=== PATIENT | female | born 1935 | race Caucasian/White ===

== ENCOUNTER → 2016-05-17 | Outpatient (CLI) | payer MEDICARE, OTHER ==
[~2016-05-17] MED LIST: ACET-1651 PO; CARV12.525 PO; CHOL200014 PO; FAMO40TA7 PO; HYDR-3989 PO; IBUP-1724 PO; LISI10TA7 PO; OMEG1CAP31 PO; OMEP20CA10 PO; PRAV40TA3 PO; [UNRECOGNIZED DRUG - CODE] PO
== END ==
LOC: WC.BC 09:57
PROVIDERS: ATTEND Physician Assistant
DX: C50.912 Malignant neoplasm of unspecified site of left female breast (principal); N64.59 Other signs and symptoms in breast; N64.89 Other specified disorders of breast; Z98.890 Other specified postprocedural states
CPT/HCPCS: G0204; G0279

== ENCOUNTER 2017-08-28 22:42 | Inpatient (IN) ==
[2017-08-28] MEDS ORDERED: SALINE FLUSH 10ml SYRINGE IVF PRN (22:47)
[2017-08-28] MEDS ORDERED: NS 1,000 ML IV ONE (22:50)
[2017-08-28] MEDS ORDERED: DiltiaZEM 25 MG/5 ML INJECTION IVP ONE (22:50)
--- NOTE | 2017-08-28 22:52 | Emergency Department Report ---
Cardiac General HPI - General Stated Complaint: A-Fib,High BP Time Seen by Provider: 08/28/17 22:46 Source: patient, EMS Mode of arrival: EMS Limitations: no limitations - History of Present Illness HPI narrative: Several hours ago the patient began experiencing palpitations with a rapid heartbeat, and mild chest pressure. Patient has known atrial fibrillation, takes carvedilol and flecainide, and has always had good control. 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 No new medications or changes, no fevers or congestion, no urinary symptoms or abdominal symptoms. Patient was found to be hypertensive, given nitroglycerin 2 in route to help with blood pressure, but was not given any medications to help control atrial fibrillation with RVR. EKG in route showed no other signs of ectopy or ischemia. - Related Data Home Medications Medication Instructions Recorded Confirmed [place]-3 Fatty Acids/Fish Oil [Eql 1 cap PO DAILY #0 07/08/14 08/29/17 Fish Oil 1,200 mg Softgel] Arimidex (anastrozole) 1 mg tablet 1 mg PO WS tab 07/07/16 08/29/17 peg 400-propylene glycol 0.4 %-0.3 1 drop EACH EYE BID PRN 07/07/16 08/29/17 % eye drops Aspirin 81 mg PO BID 07/18/16 08/29/17 Tylenol Arthritis 650 mg 650 mg PO Q8H PRN tab 08/11/16 08/29/17 tablet,extended release meclizine 25 mg tablet 25 mg PO QID PRN tab 01/26/17 08/29/17 Flonase (Fluticasone) 50 mcg nasal 2 spray INTRANASAL DAILY PRN 06/21/17 spray cholecalciferol (vitamin D3) 2,000 4,000 unit PO DAILY cap 06/21/17 08/29/17 unit capsule propylene glycol 0.6 % eye drops % OP 06/21/17 07/30/17 warfarin 5 mg tablet See Label Instructions PO .COMPLEX 08/14/17 08/29/17 tab Previous Rx's Medication Instructions Recorded flecainide 50 mg tablet 50 mg PO BID #180 tab 01/30/17 Coreg (carvedilol) 12.5 mg tablet 12.5 mg PO BID #180 tab 07/27/17 Pravachol (pravastatin) 20 mg 10 mg PO HS #45 tab 07/27/17 tablet Prilosec (Omeprazole) 20 mg 20 mg PO BID #180 cap 07/27/17 capsule,delayed release Allergies Allergy/AdvReac Type Severity Reaction Status Date / Time metformin AdvReac Intermediate Nausea, Verified 08/28/17 23:57 body aches, fatigue, palpitations Review of Systems All systems: reviewed and negative except as stated PFSH Patient Stated Medical History Cataracts Yes: REMOVED Cardiac Arrhythmia Yes: AFIB Hypertension Yes Diabetes Mellitus Type 2 Yes: PREDIABETES Clotting Problems Yes: TAKES WARFARIN Depression Yes Fibroids Yes Post Menopausal Yes Clinic Medical History (Last Reviewed 07/23/17 @ 12:55 by ZAK Alfaro) GERD (gastroesophageal reflux disease) (Chronic Medical) Bilateral cataracts (Chronic Medical) Type 2 diabetes mellitus (Chronic Medical) 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 Diagnosed in June 2014 Obesity (Chronic Medical) Surgical History: Tonsillectomy and adenoidectomy. as a child at 14. Cholecystectomy 1970. appendectomy. DEANA/BSO due to fibroids 1981. R TKR-2006. L TKR-09/2008. total hysterectomy age 46. cataracts both eyes. Left breast lumpectomy age 79 Family History: Family History (Last Reviewed 07/23/17 @ 12:55 by ZAK Alfaro) Father , Age 89 Bladder cancer Skin cancer SCC and BCC Type 2 diabetes mellitus Benign essential hypertension Mother Benign essential hypertension Type 2 diabetes mellitus Osteoarthritis Cancer of lung Sister Benign essential hypertension Brother Osteoarthritis Hx of TKR Skin cancer Malignant melanoma Benign essential hypertension Sister Osteoarthritis Benign essential hypertension Skin cancer Melanoma Cancer of breast Paternal Grandfather Stroke Maternal Grandmother Type 2 diabetes mellitus Paternal Uncle CAD (coronary artery disease) Paternal Uncle Type 2 diabetes mellitus Unknown CAD (coronary artery disease) - Social History Smoking status: Never smoker Substance use type: does not use Alcohol intake: never Alcohol intake frequency: does not drink Housing: house Household members: none Current occupational status: retired Course Vital Signs Temperature 97.7 F 08/28/17 22:42 Pulse Rate 138 H 08/28/17 22:42 Respiratory Rate 20 08/28/17 22:42 Blood Pressure 182/109 H 08/28/17 22:42 Pulse Oximetry 92 08/28/17 22:42 Temperature 97.7 F 08/28/17 22:42 Pulse Rate 91 08/29/17 00:00 Respiratory Rate 19 08/29/17 00:00 Blood Pressure 128/62 08/29/17 00:00 Pulse Oximetry 94 08/29/17 00:00 Cardiac General - MDM Narrative Medical decision making narrative: CBC, CMP shows mild dehydration only, troponin is normal. He showed atrial fibrillation with improved rate after Cardizem, but persistent A. fib. Patient' s rate has been maintained 85-98, and she continues to have mild palpitations which are unusual for her. Patient will be admitted to CCU as an outpatient with Jennifer drip to Dr. Gee 's service. - Lab Data Result diagrams: 08/28/17 23:37 08/28/17 23:37 Lab Results 08/28/17 08/28/17 Range/Units 23:37 23:37 WBC 7.4 (4.5-11.0) T/MM3 RBC 4.95 (4.00-5.20) M/MM3 Hgb 13.9 (12-16) GM/DL Hct 42.9 (36-46) % MCV 86.7 (80-100) UM3 MCH 28.1 (26-34) UUG MCHC 32.4 (31-37) GM/DL RDW Std Deviation 44.8 (36.9-50.2) FL Plt Count 190 (130-400) T/MM3 MPV 11.4 (9.4-12.4) UM3 Immature Gran % (Auto) 0.3 (0.0-0.5) % Neut % (Auto) 53.3 (33-66) % Lymph % (Auto) 34.5 (23-45) % [place] % (Auto) 8.4 (0-9.0) % Eos % (Auto) 3.1 (0-4) % Baso % (Auto) 0.4 (0-2) % Neut # (Auto) 3.9 (1.8-7.7) T/MM3 Lymph # (Auto) 2.5 (1-4.8) T/MM3 [place] # (Auto) 0.6 (0-0.8) T/MM3 Eos # (Auto) 0.2 (0-0.5) T/MM3 Baso # (Auto) 0.0 (0-0.2) T/MM3 Abs Immat Gran (auto) 0.02 (0.00-0.03) T/MM3 Turbidity < 20 (0-20) Sodium 147 H (136-146) MEQ/L Potassium 3.8 (3.6-5) MEQ/L Chloride 109 H (98-107) MEQ/L Carbon Dioxide 27 (22-30) MEQ/L Anion Gap 11 (5-15) meq/L BUN 18.0 H (7-17) MG/DL Creatinine 0.7 (0.7-1.2) mg/dL GFR Calculation 81 BUN/Creatinine Ratio 26 (6-26) RATIO Glucose 134 H (65-110) MG/DL Calculated Osmolality 286 H (261-280) MOSM/KG Calcium 9.5 (8.4-10.2) MG/DL Total Bilirubin 0.90 (0.20-1.30) MG/DL Conjugated Bilirubin 0.00 (0.00-0.30) mg/dL Unconjugated Bilirubin 0.80 (0.00-1.1) mg/dL Icterus Index < 2 (0-7) AST 21 (14-36) U/L ALT 14 (1-35) U/L Alkaline Phosphatase 77 (38-126) U/L Troponin I < 0.012 (0-0.12) ng/ml Total Protein 7.3 (6.3-8.2) g/dL Albumin 4.4 (3.5-5.0) g/dL Globulin 2.9 (2.4-3.6) G/DL Albumin/Globulin Ratio 1.5 (1.1-2.2) RATIO Specimen Hemolysis < 15 (0-25) Critical Care Time Critical Care Time: Yes Total Critical Care Time: 35 Attestation: Patient presented with palpitations, uncontrolled atrial fibrillation, and abnormal vital signs. Patient required aggressive diagnostic and interventions to control her dysrhythmia. Disposition Clinical Impression: Atrial fibrillation with RVR Disposition: 02 To [facility] Condition: Improved Prescriptions: No Action Ferris-3 Fatty Acids/Fish Oil [Eql Fish Oil 1,200 mg Softgel] 1 cap PO DAILY # 0 Aspirin 81 mg PO BID Tylenol Arthritis 650 mg tablet,extended release 650 mg PO Q8H PRN tab PRN Reason: Pain flecainide 50 mg tablet 50 mg PO BID #180 tab cholecalciferol (vitamin D3) 2,000 unit capsule 4,000 unit PO DAILY cap Flonase (Fluticasone) 50 mcg nasal spray 2 spray INTRANASAL DAILY PRN PRN Reason: seasonal allergies propylene glycol 0.6 % eye drops % OP Coreg (carvedilol) 12.5 mg tablet 12.5 mg PO BID #180 tab warfarin 5 mg tablet See Label Instructions PO .COMPLEX tab Arimidex (anastrozole) 1 mg tablet 1 mg PO WS tab peg 400-propylene glycol 0.4 %-0.3 % eye drops 1 drop EACH EYE BID PRN PRN Reason: Prn Orders meclizine 25 mg tablet 25 mg PO QID PRN tab PRN Reason: as needed for dizziness Pravachol (pravastatin) 20 mg tablet 10 mg PO HS #45 tab Prilosec (Omeprazole) 20 mg capsule,delayed release 20 mg PO BID #180 cap Referrals: Inna Cabral PA [Primary Care Provider] - - Seen By: physician
[2017-08-29] MEDS ORDERED: DiltiaZEM Drip 125 MG in NS 125 ML IV SCH (00:30)
[2017-08-29] MEDS ORDERED: NS FLUSH BAG 500ml IV ONE (01:30)
[2017-08-29] MEDS ORDERED: ONDANSETRON 4 MG/2 ML INJECTION IVP PRN (01:32)
[2017-08-29] MEDS ORDERED: ACETAMINOPHEN 325 MG TABLET PO PRN (01:33)
[2017-08-29] MEDS ORDERED: NITROGLYCERIN 0.4 MG SUBLINGUAL TABLET SL PRN (01:34)
[2017-08-29 01:39] VITALS: BMI 38.1
--- NOTE | 2017-08-29 10:19 | Cardiology History & Physical ---
History of Present Illness Chief complaint: palpitations HPI: Katie is a 82 year old who is known to Dr. Cisneros's practice with a history of PAF and HTN who began experiencing palpitations with a rapid heartbeat, and mild chest pressure. She called EMS and was found to be hypertensive, given nitroglycerin 2 in route to help with blood pressure, but was not given any medications to help control atrial fibrillation with RVR. EKG in route showed no other signs of ectopy or ischemia. EKG in ED post Cardizem shows AFib with some ST depression, HR 95. Patient was admitted to observation in the CCU in the care of Dr. Gee. She is examined in her room in CCU. She currently is rate controlled AFib, HR 80s. She states she can still feel fluttering in her chest but not as severe as last evening. She denies chest pain or pressure now. She is in no distress on room air. Review of Systems - Constitutional Constitutional: Absent: chills, fatigue, fever(s) - EENMT Eyes: Absent: change in vision Balance: Absent: vertigo Mouth/Throat: Absent: sore throat - Cardiovascular Cardiovascular: Present: chest pain (pressure), palpitations. Absent: syncope, dyspnea on exertion, orthopnea, heart murmur Rhythm: Present: abnormal rhythm Vascular: Absent: pedal edema - Respiratory Respiratory: Absent: cough, dyspnea, dyspnea on exertion - Gastrointestinal Gastrointestinal: Absent: abdominal pain, diarrhea, nausea, vomiting - Genitourinary Genitourinary: Absent: dysuria - Integumentary/Breasts Integumentary: Absent: rash - Neurological Neurological: Absent: dizziness - Endocrine Endocrine: Present: palpitations PFSH Patient Stated Medical History Cataracts Yes: REMOVED Cardiac Arrhythmia Yes: AFIB Hypertension Yes Diabetes Mellitus Type 2 Yes: PREDIABETES Clotting Problems Yes: TAKES WARFARIN Depression Yes Fibroids Yes Post Menopausal Yes Clinic Medical History (Last Reviewed 07/23/17 @ 12:55 by ZAK Alfaro) GERD (gastroesophageal reflux disease) (Chronic Medical) Bilateral cataracts (Chronic Medical) Type 2 diabetes mellitus (Chronic Medical) 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 Diagnosed in June 2014 Obesity (Chronic Medical) Surgical History: Tonsillectomy and adenoidectomy. as a child at 14. Cholecystectomy 1970. appendectomy. DEANA/BSO due to fibroids 1981. R TKR-2006. L TKR-09/2008. total hysterectomy age 46. cataracts both eyes. Left breast lumpectomy age 79 Family History: Family History (Last Reviewed 07/23/17 @ 12:55 by ZAK Alfaro) Father , Age 89 Bladder cancer Skin cancer SCC and BCC Type 2 diabetes mellitus Benign essential hypertension Mother Benign essential hypertension Type 2 diabetes mellitus Osteoarthritis Cancer of lung Sister Benign essential hypertension Brother Osteoarthritis Hx of TKR Skin cancer Malignant melanoma Benign essential hypertension Sister Osteoarthritis Benign essential hypertension Skin cancer Melanoma Cancer of breast Paternal Grandfather Stroke Maternal Grandmother Type 2 diabetes mellitus Paternal Uncle CAD (coronary artery disease) Paternal Uncle Type 2 diabetes mellitus Unknown CAD (coronary artery disease) - Social History Smoking status: Never smoker Substance use type: does not use Alcohol intake: never Alcohol intake frequency: does not drink Housing: house Household members: none Current occupational status: retired Current residence: Apartment/Private Home Medications Home Medications Medication Instructions Recorded Confirmed Type Arimidex (anastrozole) 1 mg tablet 1 mg PO WS tab 07/07/16 08/29/17 History peg 400-propylene glycol 0.4 %-0.3 1 drop EACH EYE BID PRN 07/07/16 08/29/17 History % eye drops Aspirin 81 mg PO BID 07/18/16 08/29/17 History Tylenol Arthritis 650 mg 650 mg PO Q8H PRN tab 08/11/16 08/29/17 History tablet,extended release meclizine 25 mg tablet 25 mg PO QID PRN tab 01/26/17 08/29/17 History flecainide 50 mg tablet 50 mg PO BID #180 tab 01/30/17 08/29/17 Rx Flonase (Fluticasone) 50 mcg nasal 2 spray INTRANASAL DAILY PRN 06/21/17 History spray cholecalciferol (vitamin D3) 2,000 4,000 unit PO DAILY cap 06/21/17 08/29/17 History unit capsule propylene glycol 0.6 % eye drops % OP 06/21/17 07/30/17 History Coreg (carvedilol) 12.5 mg tablet 12.5 mg PO BID #180 tab 07/27/17 08/29/17 Rx Pravachol (pravastatin) 20 mg 10 mg PO HS #45 tab 07/27/17 08/29/17 Rx tablet warfarin 5 mg tablet See Label Instructions PO .COMPLEX 08/14/17 08/29/17 History tab Famotidine [Pepcid] 40 mg PO DAILY 08/29/17 08/29/17 History Folic Acid [Folate] 1 tab PO DAILY 08/29/17 08/29/17 History [place]-3 Fatty Acids 1,200 mg PO DAILY 08/29/17 08/29/17 History Omeprazole [Prilosec] 1 cap PO ACBID 08/29/17 08/29/17 History Sodium Chloride [Saline Nasal 30 ml NS PRN 08/29/17 08/29/17 History [place]] Allergies Allergy/AdvReac Type Severity Reaction Status Date / Time metformin AdvReac Intermediate Nausea, Verified 08/28/17 23:57 body aches, fatigue, palpitations Exam Vital signs: Temperature 97.5 F 08/29/17 07:03 Pulse Rate 76 08/29/17 08:00 Respiratory Rate 23 08/29/17 07:03 Blood Pressure 151/86 H 08/29/17 07:03 Pulse Oximetry 97 08/29/17 07:03 - Constitutional no acute distress, well nourished, cooperative - Routine HEENT Exam Head: Present: normocephalic ENT: Present: mucous membranes moist - Routine Neck Exam Absent: JVD, carotid bruit - Routine Chest/Breast/Axilla Exam Chest wall: Absent: tenderness - Routine Respiratory Exam Present: CTA bilaterally. Absent: rales, wheezes - Routine Cardiovascular Exam Present: no murmur - Routine Abdominal Exam Present: soft, non tender - Routine Extremities Exam Present: no edema - Routine Skin Exam Present: intact, dry, warm - Routine Neurological Exam Present: alert, oriented X3 - Routine Psychiatric Exam Present: normal affect, normal thought process Results 08/29/17 04:47 08/29/17 04:45 Cardiac Enzymes 08/28/17 08/29/17 Range/Units 23:37 04:45 AST 21 20 (14-36) U/L Troponin I < 0.012 (0-0.12) ng/ml CBC 08/28/17 08/29/17 Range/Units 23:37 04:47 WBC 7.4 8.0 (4.5-11.0) T/MM3 RBC 4.95 4.99 (4.00-5.20) M/MM3 Hgb 13.9 13.9 (12-16) GM/DL Hct 42.9 43.0 (36-46) % Plt Count 190 195 (130-400) T/MM3 Neut # (Auto) 3.9 (1.8-7.7) T/MM3 Lymph # (Auto) 2.5 (1-4.8) T/MM3 [place] # (Auto) 0.6 (0-0.8) T/MM3 Eos # (Auto) 0.2 (0-0.5) T/MM3 Baso # (Auto) 0.0 (0-0.2) T/MM3 Comprehensive Metabolic Panel 08/28/17 08/29/17 Range/Units 23:37 04:45 Sodium 147 H 144 (136-146) MEQ/L Potassium 3.8 4.0 (3.6-5) MEQ/L Chloride 109 H 110 H (98-107) MEQ/L Carbon Dioxide 27 25 (22-30) MEQ/L BUN 18.0 H 16.0 (7-17) MG/DL Creatinine 0.7 0.5 L D (0.7-1.2) mg/dL Glucose 134 H 117 H (65-110) MG/DL Calcium 9.5 9.2 (8.4-10.2) MG/DL Unconjugated Bilirubin 0.80 (0.00-1.1) mg/dL AST 21 20 (14-36) U/L ALT 14 13 (1-35) U/L Alkaline Phosphatase 77 68 (38-126) U/L Total Protein 7.3 7.0 (6.3-8.2) g/dL Albumin 4.4 4.0 (3.5-5.0) g/dL Intake and Output 08/28/17 08/29/17 08/29/17 22:59 06:59 14:59 Intake Total 1000 / 1000 Output Total 500 / 500 150 / 150 Balance 500 / 500 -150 / -150 Intake: IV 1000 / 1000 Ns 1,000 ml @ 999.9 mls/hr IV . 1000 / 1000 Q1H ONE Rx#:[id number] Output: Urine 500 / 500 150 / 150 Other: # Voids 1 Weight 202 lb 13.204 oz 198 lb 10.184 oz 198 lb 10.184 oz Patient Weight 08/30/17 06:59 Weight 198 lb 10.184 oz - Imaging and Cardiology Echo: pending Imaging & Cardiology Narrative: Date of Exam: 08/29/17 Ordering Provider: Elaine Troy APRN Type of Exam(s): XR chest 1V Reason for Exam(s): afib rvr Indication: afib rvr PROCEDURE: XR chest 1V: Encounter: Initial Comparison: April 21, 2017 Findings: The lungs are stable in appearance without new focal airspace consolidation. There is no pleural effusion or pneumothorax. The heart size, pulmonary vascularity and mediastinal contours are unchanged. IMPRESSION: Stable appearance of the chest without acute cardiopulmonary disease. 08/29/17 13:36 08/30/17 11:01 Date of Exam: 08/29/17 Type of Exam(s): US echo doppler complete DATE OF PROCEDURE 08/29/2017 PROCEDURE PERFORMED 2D echocardiography with M-mode assessment and full color spectral Doppler assessment. FINDINGS 1. LEFT VENTRICLE. Left ventricle appears normal in size. Normal left ventricular wall thickness noted. Left ventricular systolic function is normal. Estimated ejection fraction is 60-65% and the study is not technically sufficient to allow accurate assessment of diastolic function. 2. RIGHT VENTRICLE. Right ventricle appears normal in size. Normal RV wall thickness noted. Normal right ventricular systolic function noted. 3. LEFT ATRIUM. Left atrium is enlarged. 4. RIGHT ATRIUM. Right atrium is mildly enlarged. 5. INTERATRIAL SEPTUM. Interatrial septum appears aneurysmal. There is no obvious shunting noted with color flow Doppler assessment. 6. MITRAL VALVE. Mitral valve appears structurally normal. There is only trivial mitral regurgitation noted. 7. AORTIC VALVE. Aortic valve appears tricuspid with normal leaflet thickness. No significant aortic stenosis is noted. No aortic regurgitation noted. 8. TRICUSPID VALVE. Tricuspid valve poorly visualized on today's study. Trivial tricuspid regurgitation noted. 9. PULMONIC VALVE. Pulmonic valve poorly visualized on today's study. Trivial pulmonic regurgitation noted. 10. INFERIOR VENA CAVA. Inferior vena cava is normal in size and normal respirophasic variation noted. CONCLUSION 1. Normal left ventricular systolic function, estimated left ventricular ejection fraction 60-65%. 2. Normal right ventricular systolic function. 3. Trivial mitral regurgitation noted. 4. Normal inferior vena cava with normal respirophasic variation. EKG interpretations - EKG EKG shows: atrial fibrillation Hospital Course This is a general summary of the patient's hospital course. For more details refer to the complete medical record. Time spent with patient: 25 - 35 minutes Resuscitation Status: Full Code Assessment and Plan - Assessment and Plan (1) Atrial fibrillation with RVR Current visit: Yes Status: Acute Onset last evening, felt palpitations and chest pressure - on chronic anticoagulation on Warfarin, check INR - NPO for DCCV later today - Give 100mg Flecainide now - TSH WNL, Mag pending - EKG if rhythm change (2) Benign hypertension Current visit: No Status: Chronic - Assessment and Plan A Fib RVR: Onset last evening, felt palpitations and chest pressure - on chronic anticoagulation on Warfarin, check INR - NPO for DCCV later today - Give 100mg Flecainide now - TSH WNL, Mag pending - EKG if rhythm change INR 2.46 Sucessful DCCV to SR. Flecainide 100mg BID for AAT - monitor cardiac telemetry - EKG in am
[2017-08-29] MEDS ORDERED: FLUTICASONE NASAL SPRAY 50mcg EA NOSTRIL PRN (10:22)
[2017-08-29] MEDS ORDERED: SYSTANE EYE DROPS 0.7ml EACH EYE PRN (10:22)
[2017-08-29] MEDS ORDERED: MECLIZINE 25 MG TABLET PO PRN (10:22)
[2017-08-29] MEDS ORDERED: SALINE 0.65% NASAL SPRAY 44 ML BOTTLE EA NOSTRIL PRN (10:30)
[2017-08-29] MEDS ORDERED: FLECAINIDE 100 MG TABLET PO ONE (11:04)
[2017-08-29] MEDS: OMEPRAZOLE 20 MG CAPSULE PO SCH ×2 (11:17→17:36)
[2017-08-29] MEDS: FOLIC ACID 1 MG TABLET PO SCH (11:18)
--- NOTE | 2017-08-29 11:33 | XRay Report ---
Indication: afib rvr PROCEDURE: XR chest 1V: Encounter: Initial Comparison: April 21, 2017 Findings: The lungs are stable in appearance without new focal airspace consolidation. There is no pleural effusion or pneumothorax. The heart size, pulmonary vascularity and mediastinal contours are unchanged. IMPRESSION: Stable appearance of the chest without acute cardiopulmonary disease. .
[2017-08-29] MEDS ORDERED: NS FLUSH BAG 500ml IV PRN (11:51)
[2017-08-29] MEDS: FAMOTIDINE 40 MG TABLET PO SCH (11:53)
[2017-08-29] MEDS ORDERED: WARFARIN 7.5 MG TABLET PO SCH (12:00)
--- NOTE | 2017-08-29 14:39 | DC Cardioversion ---
DATE OF PROCEDURE 08/29/2017 PROCEDURE PERFORMED Direct current cardioversion PROCEDURE NOTE Risks and benefits of procedure were explained to the patient and then informed consent was obtained. Procedure was performed in the CCU at bedside. Patient has been on oral anticoagulation for buttermaker. Intravenous Midazolam and Fentanyl was given for conscious sedation during the procedure. Patient received a total of 3 mg of Midazolam and 50 mcg of Fentanyl. After sedation, a single synchronized shock of 200 joules was delivered and successfully converted from atrial fibrillation to normal sinus rhythm sinus bradycardia. Patient was then continuously monitored in CCU. CONCLUSION Successful cardioversion from atrial fibrillation to normal sinus rhythm sinus bradycardia. RECOMMENDATION Will increase the dose of Flecainide to 100 mg b.i.d. and continue on oral anticoagulation indefinitely. MTDD
[2017-08-29] MEDS ORDERED: MIDAZOLAM 2mg/2ml INJECTION IVP ONE (15:44)
[2017-08-29] MEDS ORDERED: SALINE FLUSH 10ml SYRINGE IV ONE (15:44)
[2017-08-29] MEDS ORDERED: FentaNYL 100 MCG/2 ML INJECTION IVP ONE (15:44)
--- NOTE | 2017-08-29 15:50 | Echocardiogram ---
DATE OF PROCEDURE 08/29/2017 PROCEDURE PERFORMED 2D echocardiography with M-mode assessment and full color spectral Doppler assessment. FINDINGS 1. LEFT VENTRICLE. Left ventricle appears normal in size. Normal left ventricular wall thickness noted. Left ventricular systolic function is normal. Estimated ejection fraction is 60-65% and the study is not technically sufficient to allow accurate assessment of diastolic function. 2. RIGHT VENTRICLE. Right ventricle appears normal in size. Normal RV wall thickness noted. Normal right ventricular systolic function noted. 3. LEFT ATRIUM. Left atrium is enlarged. 4. RIGHT ATRIUM. Right atrium is mildly enlarged. 5. INTERATRIAL SEPTUM. Interatrial septum appears aneurysmal. There is no obvious shunting noted with color flow Doppler assessment. 6. MITRAL VALVE. Mitral valve appears structurally normal. There is only trivial mitral regurgitation noted. 7. AORTIC VALVE. Aortic valve appears tricuspid with normal leaflet thickness. No significant aortic stenosis is noted. No aortic regurgitation noted. 8. TRICUSPID VALVE. Tricuspid valve poorly visualized on today's study. Trivial tricuspid regurgitation noted. 9. PULMONIC VALVE. Pulmonic valve poorly visualized on today's study. Trivial pulmonic regurgitation noted. 10. INFERIOR VENA CAVA. Inferior vena cava is normal in size and normal respirophasic variation noted. CONCLUSION 1. Normal left ventricular systolic function, estimated left ventricular ejection fraction 60-65%. 2. Normal right ventricular systolic function. 3. Trivial mitral regurgitation noted. 4. Normal inferior vena cava with normal respirophasic variation. [facility]
[2017-08-29] MEDS ORDERED: ANASTROZOLE 1 MG TABLET PO SCH (17:30)
[2017-08-29] MEDS ORDERED: PRAVASTATIN 10 MG TABLET PO SCH (21:00)
[2017-08-29] MEDS: ASPIRIN 81 MG CHEWABLE TABLET PO SCH (21:02)
[2017-08-29] MEDS: CARVEDILOL 12.5 MG TABLET PO SCH (21:03)
[2017-08-29] MEDS: FLECAINIDE 100 MG TABLET PO SCH (21:03)
[2017-08-30] MEDS: OMEPRAZOLE 20 MG CAPSULE PO SCH (06:15)
[2017-08-30 07:29] VITALS: TEMP 97
[2017-08-30] MEDS: CARVEDILOL 12.5 MG TABLET PO SCH (09:30)
[2017-08-30] MEDS: FLECAINIDE 100 MG TABLET PO SCH (09:31)
[2017-08-30] MEDS: ASPIRIN 81 MG CHEWABLE TABLET PO SCH (09:31)
[2017-08-30] MEDS: FOLIC ACID 1 MG TABLET PO SCH (09:31)
[2017-08-30] MEDS: FAMOTIDINE 40 MG TABLET PO SCH (09:35)
--- NOTE | 2017-08-30 11:05 | Discharge Summary ---
Discharge Information Date of admission: 08/29/17 14:22 Anticipated date of discharge: 08/30/17 Attending Physician: Messi Gee MD Primary care physician: ZAK Garcia - Discharge Diagnosis (1) Atrial fibrillation with RVR Status: Acute (2) Benign hypertension Status: Chronic Atrial fibrillation - Procedures Procedures: DATE OF PROCEDURE 08/29/2017 PROCEDURE PERFORMED Direct current cardioversion PROCEDURE NOTE Risks and benefits of procedure were explained to the patient and then informed consent was obtained. Procedure was performed in the CCU at bedside. Patient has been on oral anticoagulation for custodial. Intravenous Midazolam and Fentanyl was given for conscious sedation during the procedure. Patient received a total of 3 mg of Midazolam and 50 mcg of Fentanyl. After sedation, a single synchronized shock of 200 joules was delivered and successfully converted from atrial fibrillation to normal sinus rhythm sinus bradycardia. Patient was then continuously monitored in CCU. CONCLUSION Successful cardioversion from atrial fibrillation to normal sinus rhythm sinus bradycardia. RECOMMENDATION Will increase the dose of Flecainide to 100 mg b.i.d. and continue on oral anticoagulation indefinitely. - Laboratory Labs: 08/29/17 04:47 08/29/17 04:45 History of Present Illness HPI: Katie is a 82 year old who is known to Dr. Cisneros's practice with a history of PAF and HTN who began experiencing palpitations with a rapid heartbeat, and mild chest pressure. She called EMS and was found to be hypertensive, given nitroglycerin 2 in route to help with blood pressure, but was not given any medications to help control atrial fibrillation with RVR. EKG in route showed no other signs of ectopy or ischemia. EKG in ED post Cardizem shows AFib with some ST depression, HR 95. Patient was admitted to observation in the CCU in the care of Dr. Gee. She is examined in her room in CCU. She currently is rate controlled AFib, HR 80s. She states she can still feel fluttering in her chest but not as severe as last evening. She denies chest pain or pressure now. She is in no distress on room air. Hospital Course This is a general summary of the patient's hospital course. For more details refer to the complete medical record. Hospital course: 08/29/17 A Fib RVR: Onset last evening, felt palpitations and chest pressure - on chronic anticoagulation on Warfarin, check INR - NPO for DCCV later today - Give 100mg Flecainide now - TSH WNL, Mag pending - EKG if rhythm change INR 2.46 Sucessful DCCV to SR. Flecainide 100mg BID for AAT - monitor cardiac telemetry - EKG in am Time spent with patient: 25 - 35 minutes Resuscitation Status: Full Code Exam Vital signs: Temperature 97 F 08/30/17 07:00 Pulse Rate 50 L 08/30/17 07:29 Respiratory Rate 25 H 08/30/17 07:00 Blood Pressure 137/61 08/30/17 07:00 Pulse Oximetry 93 08/30/17 07:00 - Constitutional no acute distress, well nourished, cooperative - Routine HEENT Exam Head: Present: normocephalic ENT: Present: mucous membranes moist - Routine Neck Exam Absent: JVD, carotid bruit - Routine Chest/Breast/Axilla Exam Chest wall: Absent: tenderness - Routine Respiratory Exam Present: CTA bilaterally. Absent: dyspnea, rales, wheezes - Routine Cardiovascular Exam Present: RRR, no murmur - Routine Abdominal Exam Present: soft, non tender - Routine Extremities Exam Present: no edema - Routine Skin Exam Present: intact, dry, warm - Routine Neurological Exam Present: alert, oriented X3 - Routine Psychiatric Exam Present: normal affect, normal thought process Results 08/29/17 04:47 08/29/17 04:45 Intake and Output 08/29/17 08/30/17 08/30/17 22:59 06:59 14:59 Intake Total 0 / 0 120 / 120 Output Total 200 / 200 200 / 200 Balance 0 / 0 -200 / -200 -80 / -80 Intake: IV 0 / 0 DiltiaZEM Drip 125 mg In Ns 125 0 / 0 ml @ 5 mls/hr IV .Q24H [facility] Rx# :[id number] Oral 120 / 120 Output: Urine 200 / 200 200 / 200 Other: Urine Appearance Clear Urine Color Dark Yellow Yellow # Voids 1 Weight 197 lb 8.547 oz Patient Weight 08/31/17 06:59 Weight 197 lb 8.547 oz - Imaging and Cardiology Imaging & Cardiology Narrative: Date of Exam: 08/29/17 Type of Exam(s): US echo doppler complete DATE OF PROCEDURE 08/29/2017 PROCEDURE PERFORMED 2D echocardiography with M-mode assessment and full color spectral Doppler assessment. FINDINGS 1. LEFT VENTRICLE. Left ventricle appears normal in size. Normal left ventricular wall thickness noted. Left ventricular systolic function is normal. Estimated ejection fraction is 60-65% and the study is not technically sufficient to allow accurate assessment of diastolic function. 2. RIGHT VENTRICLE. Right ventricle appears normal in size. Normal RV wall thickness noted. Normal right ventricular systolic function noted. 3. LEFT ATRIUM. Left atrium is enlarged. 4. RIGHT ATRIUM. Right atrium is mildly enlarged. 5. INTERATRIAL SEPTUM. Interatrial septum appears aneurysmal. There is no obvious shunting noted with color flow Doppler assessment. 6. MITRAL VALVE. Mitral valve appears structurally normal. There is only trivial mitral regurgitation noted. 7. AORTIC VALVE. Aortic valve appears tricuspid with normal leaflet thickness. No significant aortic stenosis is noted. No aortic regurgitation noted. 8. TRICUSPID VALVE. Tricuspid valve poorly visualized on today's study. Trivial tricuspid regurgitation noted. 9. PULMONIC VALVE. Pulmonic valve poorly visualized on today's study. Trivial pulmonic regurgitation noted. 10. INFERIOR VENA CAVA. Inferior vena cava is normal in size and normal respirophasic variation noted. CONCLUSION 1. Normal left ventricular systolic function, estimated left ventricular ejection fraction 60-65%. 2. Normal right ventricular systolic function. 3. Trivial mitral regurgitation noted. 4. Normal inferior vena cava with normal respirophasic variation. 08/30/17 11:03 - EKG Interpretation EKG: sinus rhythm (HR 64, QTc 422) Discharge Plan - Med Rec/Dispo Referrals/Follow Up: Chuck Cisneros MD [Physician] - 3 Weeks (September 20, 2017 @0910) Disha Instructions: A-fib (Atrial Fibrillation) (DC) Prescriptions: New Flecainide [Tambocor] 100 mg PO BID #60 tab Continue Omeprazole [Prilosec] 1 cap PO ACBID Folic Acid [Folate] 1 tab PO DAILY Aspirin 81 mg PO BID [place]-3 Fatty Acids 1,200 mg PO DAILY Famotidine [Pepcid] 40 mg PO DAILY Sodium Chloride [Saline Nasal [place]] 30 ml NS PRN Tylenol Arthritis 650 mg tablet,extended release 650 mg PO Q8H PRN tab PRN Reason: Pain cholecalciferol (vitamin D3) 2,000 unit capsule 4,000 unit PO DAILY cap Flonase (Fluticasone) 50 mcg nasal spray 2 spray INTRANASAL DAILY PRN PRN Reason: seasonal allergies propylene glycol 0.6 % eye drops % OP Coreg (carvedilol) 12.5 mg tablet 12.5 mg PO BID #180 tab warfarin 5 mg tablet See Label Instructions PO .COMPLEX tab Arimidex (anastrozole) 1 mg tablet 1 mg PO WS tab peg 400-propylene glycol 0.4 %-0.3 % eye drops 1 drop EACH EYE BID PRN PRN Reason: Prn Orders meclizine 25 mg tablet 25 mg PO QID PRN tab PRN Reason: as needed for dizziness Pravachol (pravastatin) 20 mg tablet 10 mg PO HS #45 tab Discontinued flecainide 50 mg tablet 50 mg PO BID #180 tab - Disposition 01 Discharged Home, Self-Care - Dismissal Complete Discharge Instructions are:: Complete
[2017-08-30 11:52] VITALS: BP 167/74; PULSE 59; RESP 16; O2SAT 97
== END 2017-08-30 11:50 | disposition home or self-care (01) | DRG 310 ==
LOC: CCU 22:42 → ED 22:42 → CCU 08-29 00:45
PROVIDERS: ADMIT Internal Medicine Interventional Cardiology; ATTEND Internal Medicine Interventional Cardiology